=== PATIENT | female | born 1985 | race Caucasian/White ===

== ENCOUNTER 2017-03-14 08:43 | Emergency (ER) | payer MEDICAID ==
[2017-03-14 08:48] VITALS: BP 133/84; PULSE 102; RESP 18; TEMP 98.8; O2SAT 96
[2017-03-14] MEDS ORDERED: DEXAMETHASONE 4 MG TAB PO ONE (09:05)
--- NOTE | 2017-03-14 09:05 | EDPHY ---
H & P Stated Complaint: swollen tonsils for 2 days, left worse than the right HPI/ROS: CHIEF COMPLAINT: Sore throat, swollen tonsils HISTORY OF PRESENT ILLNESS: Patient complains of 2 day history of sore throat. She feels that the pain is worse on the left but it is moderate to severe in the entire throat. No cough. No runny nose. No headache or sinus congestion. No shortness of breath. No abdominal pain. No urinary complaints, although she is completing a course of Macrobid for UTI. She has no chest pain. Symptoms are worse with intake by mouth. The improves when NPO. No neck pain or stiffness. No other associated complaints or modifying factors. REVIEW OF SYSTEMS: Ten systems reviewed and are negative unless otherwise noted in the HPI PAST MEDICAL HISTORY: PE in July on Coumadin, hysterectomy due to abnormal Pap smear PAST SURGICAL HISTORY: Hysterectomy in November 2016. SOCIAL HISTORY: Occasional smoker. No alcohol. 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 No drooling. Mucous membranes moist. There is mild erythema of the posterior pharynx. There is moderate erythema of bilateral tonsils. The tonsils are symmetric and without any evidence of peritonsillar abscess. There is tonsillar exudate. Airway is widely patent with midline uvula. Neck: Normal inspection, supple, tender anterior cervical lymphadenopathy. No meningismus or rigidity. Respiratory: Lungs are clear to auscultation no wheezing, rhonchi or Cardiovascular: Regular rate and rhythm Gastrointestinal: Abdomen is nondistended Neurological: A&O, nonfocal Skin: Warm and dry, no rash. No petechiae or purpura Extremities: Nontender, no pedal edema Psychiatric: Mood and affect normal DIFFERENTIAL DIAGNOSES: Including but not limited to strep pharyngitis, viral pharyngitis, strep tonsillitis, viral tonsillitis, peritonsillar abscess, Markus's MDM: 9:05 a.m. Bilateral and symmetric tonsillitis with exudate. There is pharyngitis as well. The uvula is midline. There is no peritonsillar abscess. No abnormality of the floor of the mouth. She has no other complaints, thus I clinical suspicion for strep pharyngitis. She has elected to have a rapid strep test performed, for her information. I would like to treat her clinically regardless of the rapid strep test. She is comfortable this plan. I have ordered Decadron here. I have ordered Augmentin for treatment outpatient. She reports UTIs on antibiotics, but she is taking Coumadin due to a PE. Thus I declined to prescribe Diflucan. I provided prescription for vaginal miconazole and instructions for her to contact her primary care physician to discuss if they are comfortable with oral Diflucan should she developed a yeast infection. She is comfortable with this plan. She is discharged home stable condition. Source: Patient Exam Limitations: No limitations - Personal History LMP (Females 10-55): Hysterectomy Current Tetanus Diphtheria and Acellular Pertussis (TDAP): Yes - Medical/Surgical History Hx Asthma: No Hx Chronic Respiratory Disease: No Hx Diabetes: No Hx Cardiac Disease: No Hx Renal Disease: No Hx Cirrhosis: No Hx Alcoholism: No Hx HIV/AIDS: No Hx Splenectomy or Spleen Trauma: No Other PMH: Tonsilitis as a child. PE's. Anxiety. - Social History Smoking Status: Current some day smoker Constitutional: Initial Vital Signs Temperature (C) 98.8 F 03/14/17 08:43 Heart Rate 102 H 03/14/17 08:43 Respiratory Rate 18 03/14/17 08:43 Blood Pressure 133/84 H 03/14/17 08:43 O2 Sat (%) 96 03/14/17 08:43 O2 Delivery Mode Room Air Allergies/Adverse Reactions: azithro Allergy (Uncoded 03/14/17 08:48) Home Medications: Medication Instructions Recorded Amoxicillin/Clavulanate Pot 875 mg PO BID #20 tab 03/14/17 [Augmentin 875 MG TAB (*)] LORAZEPAM 03/14/17 Miconazole Nitrate [MICONAZOLE 3] 200 mg VG HS #3 03/14/17 Warfarin Sodium 03/14/17 Wellbutrin Sr 03/14/17 Medical Decision Making - Data Points Laboratory Results: 03/14/17 09:10 Group A Strep Screen Pending Medications Given: Discontinued Medications Dexamethasone (Decadron) 8 mg PO EDNOW ONE Stop: 03/14/17 09:06 Last Admin: 03/14/17 09:11 Dose: 8 mg Departure - Departure Disposition: Home, Routine, Self-Care Clinical Impression: Acute pharyngitis Qualifiers: Pharyngitis/tonsillitis etiology: streptococcus Qualified Code(s): J02.0 - Streptococcal pharyngitis Acute streptococcal tonsillitis Qualifiers: Streptococcal tonsillitis recurrence: non-recurrent Qualified Code(s): J03.00 - Acute streptococcal tonsillitis, unspecified Condition: Good Instructions: Pharyngitis (ED), Strep Throat (ED), Tonsillitis (ED) Additional Instructions: 1. Increase fluid intake 2. Tylenol [id number] as discussed as needed 3. antibiotics to completion 4. Follow up with primary care physician 5. ED precautions as discussed Referrals: UNKNOWN,UNKNOWN [Other] - As per Instructions Douglas Velasco MD [Medical Doctor] - As per Instructions Stand Alone Forms: Work Excuse Prescriptions: Amoxicillin/Clavulanate Pot [Augmentin 875 MG TAB (*)] 875 mg PO BID #20 tab Miconazole Nitrate [MICONAZOLE 3] 200 mg VG HS #3
== END 2017-03-14 09:15 | disposition home or self-care (01) ==
DX: J03.00 Acute streptococcal tonsillitis, unspecified (principal); F17.200 Nicotine dependence, unspecified, uncomplicated; Z79.01 Long term (current) use of anticoagulants

== ENCOUNTER 2017-04-08 20:33 | Emergency (ER) | payer MEDICAID ==
[2017-04-08 20:46] VITALS: BP 125/89; PULSE 84; RESP 18; TEMP 98.4; O2SAT 97
--- NOTE | 2017-04-08 20:48 | EDPHY ---
H & P Stated Complaint: strep 1 mos ago treated sore throat again Time Seen by Provider: 04/08/17 20:48 HPI/ROS: HPI: This is a 32-year-old female who presents with Chief Complaint: strep 1 mos ago treated sore throat again Location: Throat Quality: Sore Duration: 2 days Signs and Symptoms: No difficulty swallowing, no fever, no ear pain, no cough, + swollen glands, no neck stiffness, no headache Timing: Gradual onset Severity: [id number] Context: Patient reports that she has a sore throat with white spots on for 1- 2 days. She also complains of swollen glands. She denies any fever/cough/neck stiffness. She was seen in this ER approximately 1 month ago; rapid strep was negative; given Augmentin but only took a few days of it. She admits that she started taking the antibiotic again yesterday. Modifying Factors: Augmentin Comment: ROS: see HPI Constitutional: No fever, no chills, no weight loss Eyes: No blurred vision Respiratory: No shortness of breath, no cough Cardiovascular: No chest pain Gastrointestinal: No nausea, no vomiting, no diarrhea Genitourinary: No dysuria Extremities: No myalgias Neurologic: No weakness, no numbness Skin: No rashes Hematologic: No bruising, no bleeding MEDICAL/SURGICAL/SOCIAL HISTORY: Medical history: PE's. Anxiety. cervical ca. strep Surgical history: Hysterectomy Social history: Employed CONSTITUTIONAL: Well-appearing adult white female, awake and alert, no obvious distress HEENT: Atraumatic and normocephalic, PERRL, EOMI. Tympanic membranes clear. Oropharynx clear, tonsils 1+; uvula midline; white exudate and moist pink mucosa. Airway patent. Spotty anterior cervical lymphadenopathy. No meningismus. Cardiovascular: Normal S1/S2, regular rate, regular rhythm, without murmur rub or gallop. PULMONARY/CHEST: Symmetrical and nontender. Clear to auscultation bilaterally. Good air movement. No accessory muscle usage. ABDOMEN: Soft, nondistended, nontender, no rebound, no guarding, no peritoneal signs, no masses or organomegaly. No CVAT. EXTREMITIES: 2/2 pulses, no deformities, no clubbing, no cyanosis or edema. NEUROLOGICAL: no focal neuro deficits. GCS 15. SKIN: Warm and dry, no erythema. no rash. Good capillary refill. Source: Patient Exam Limitations: No limitations - Personal History LMP (Females 10-55): Hysterectomy Current Tetanus/Diphtheria Vaccine: Yes Current Tetanus Diphtheria and Acellular Pertussis (TDAP): Yes - Medical/Surgical History Hx Asthma: No Hx Chronic Respiratory Disease: No Hx Diabetes: No Hx Cardiac Disease: No Hx Renal Disease: No Hx Cirrhosis: No Hx Alcoholism: No Hx HIV/AIDS: No Hx Splenectomy or Spleen Trauma: No Other PMH: PE's. Anxiety. cervical ca. strep - Social History Smoking Status: Current some day smoker Constitutional: Initial Vital Signs Temperature (C) 36.9 C 04/08/17 20:41 Heart Rate 84 04/08/17 20:41 Respiratory Rate 18 04/08/17 20:41 Blood Pressure 125/89 H 04/08/17 20:41 O2 Sat (%) 97 04/08/17 20:41 O2 Delivery Mode Room Air Allergies/Adverse Reactions: erythromycin base Allergy (Verified 04/08/17 20:40) azithro Allergy (Uncoded 03/14/17 08:48) Home Medications: Medication Instructions Recorded Warfarin Sodium 03/14/17 Wellbutrin Sr 03/14/17 KLONOPIN 04/08/17 Prozac 20 MG (*) 04/08/17 Medical Decision Making ED Course/Re-evaluation: Rapid strep test ordered Given viscous lidocaine and p.o. Decadron. Modified center criteria= 2 No signs of tonsillar abscess/airway compromise Strep test is negative no indication to treat with antibiotics Differential Diagnosis: Differential diagnosis includes but is not limited to viral syndrome, strep pharyngitis, mononucleosis. - Data Points Laboratory Results: 04/08/17 04/08/17 Unknown 20:50 Group A Strep Screen NEGATIVE (NEGATIVE) Group A Strep DNA Pending Medications Given: Discontinued Medications Dexamethasone (Decadron) 10 mg PO EDNOW ONE Stop: 04/08/17 20:54 Last Admin: 04/08/17 20:59 Dose: 10 mg Lidocaine (Lidocaine 2% Viscous) 15 ml PO EDNOW ONE Stop: 04/08/17 20:54 Last Admin: 04/08/17 20:59 Dose: 15 ml Departure - Departure Disposition: Home, Routine, Self-Care Clinical Impression: Tonsillitis with exudate Condition: Good Instructions: Tonsillitis (ED) Additional Instructions: Your strep test is negative today. Please continue to perform salt water gargles, take [id number] pain medications like Tylenol and ibuprofen, and use throat numbing sprays. Drink plenty of fluids. Follow-up with ENT if symptoms continue to persist or worsen. Referrals: EVIE BENDER [Primary Care Provider] - As per Instructions Christopher Saucedo MD [Medical Doctor] - As per Instructions
[2017-04-08] MEDS ORDERED: DEXAMETHASONE 4 MG TAB PO ONE (20:53)
[2017-04-08] MEDS ORDERED: LIDOCAINE 2% VISCOUS 15 ML UDCUP PO ONE (20:53)
== END 2017-04-08 21:32 | disposition home or self-care (01) ==
DX: J03.90 Acute tonsillitis, unspecified (principal); F17.200 Nicotine dependence, unspecified, uncomplicated; Z79.01 Long term (current) use of anticoagulants; Z85.41 Personal history of malignant neoplasm of cervix uteri

== ENCOUNTER 2017-04-28 16:44 | Emergency (ER) | payer MEDICAID ==
[2017-04-28 16:49] VITALS: BP 112/87; PULSE 99; RESP 20; TEMP 99.3; O2SAT 96
--- NOTE | 2017-04-28 17:39 | EDPHY ---
H & P Stated Complaint: fever, cough x3 days Time Seen by Provider: 04/28/17 17:32 HPI/ROS: CHIEF COMPLAINT: Flu-like symptoms x 2-3 days HISTORY OF PRESENT ILLNESS: 32-year-old female history of pulmonary emboli currently on warfarin therapy complaining of 2-3 days of myalgias, fever, chills , nonproductive cough, sore throat. She did receive influenza vaccination this season. No urinary abnormality. No headache. No nuchal rigidity. No abdominal pain. No chest pain. No flank pain. PRIMARY CARE PROVIDER: Dr. Elvin Randolph REVIEW OF SYSTEMS: A ten point review of systems was performed and is negative with the exception of the items mentioned in the HPI PAST MEDICAL & SURGICAL HISTORY: Pulmonary emboli on warfarin SOCIAL HISTORY: nonsmoker PHYSICAL EXAM (Prior to examination, patient consented to physical exam, hands were washed and my usual and customary physical exam procedures followed) 1) GENERAL: Well-developed, well-nourished, alert and oriented. Appears to be in no acute distress. 2) HEAD: Normocephalic, atraumatic 3) HEENT: Pupils equal, round, reactive to light bilaterally. Sclera anicteric. Nasopharynx, oropharynx, clear, no lesions. No tonsillar enlargement or exudate. Ears bilaterally with normal tympanic membranes. 4) NECK: Full range of motion, no meningeal signs. No adenopathy 5) LUNGS: Clear auscultation bilaterally, no wheezes, no rhonchi, no retractions. 6) HEART: Regular rate and rhythm, no murmur, no heave, no gallop. 7) ABDOMEN: No guarding, no rebound, no focal tenderness, negative McBurney's, negative Bustillos's, negative Rovsing's, negative peritoneal sign, 8) MUSCULOSKELETAL: Moving all extremities, no focal areas of tenderness, no obvious trauma. No peripheral edema or discoloration. 9) BACK: No CVA tenderness. 10) SKIN: No rash, no petechiae. 11) Psychiatric: Patient is oriented X 3, there is no agitation. DIFFERENTIAL DIAGNOSIS: in no particular include but limited to meningitis, influenza, viral URI, pneumonia - Personal History LMP (Females 10-55): Hysterectomy Current Tetanus Diphtheria and Acellular Pertussis (TDAP): Yes - Medical/Surgical History Hx Asthma: No Hx Chronic Respiratory Disease: No Hx Diabetes: No Hx Cardiac Disease: No Hx Renal Disease: No Hx Cirrhosis: No Hx Alcoholism: No Hx HIV/AIDS: No Hx Splenectomy or Spleen Trauma: No Other PMH: PE's. Anxiety. cervical ca. strep - Social History Smoking Status: Current some day smoker Constitutional: Initial Vital Signs Temperature (C) 37.4 C 04/28/17 16:47 Heart Rate 99 04/28/17 16:47 Respiratory Rate 20 04/28/17 16:47 Blood Pressure 112/87 H 04/28/17 16:47 O2 Sat (%) 96 04/28/17 16:47 O2 Delivery Mode Room Air Allergies/Adverse Reactions: erythromycin base Allergy (Verified 04/08/17 20:40) Home Medications: Medication Instructions Recorded Warfarin Sodium 03/14/17 Wellbutrin Sr 03/14/17 KLONOPIN 04/08/17 Prozac 20 MG (*) 04/08/17 Percocet 5/325 (*) 04/28/17 Medical Decision Making ED Course/Re-evaluation: Care of patient under supervision of secondary supervising physician Dr Chaudhry. Doubt meningitis at this time absence of meningismus and other exam findings. 5:57 p.m.: Informed by the patient's nurse that patient had an acute unexpected family emergency that she just received a phone call about and now has to leave the emergency department. Diagnostic results pending. 6:43 p.m.:Patient is positive for influenza A, the charge nurse spoke with the patient and she will hold on antiviral therapy - Data Points Laboratory Results: 04/28/17 17:38 Nasal Influenza A PCR FLU A DETECTED (NEGATIVE) Nasal Influenza B PCR NEGATIVE FOR FLU B (NEGATIVE) Departure - Departure Disposition: Against Medical Advice Clinical Impression: Influenza A Condition: Good Referrals: ELVIN RANDOLPH [Primary Care Provider] - As per Instructions
== END 2017-04-28 18:04 | disposition left against medical advice (07) ==
DX: J10.1 Influenza due to other identified influenza virus with other respiratory manifestations (principal); F17.200 Nicotine dependence, unspecified, uncomplicated; Z79.01 Long term (current) use of anticoagulants

== ENCOUNTER 2017-10-07 14:18 | Emergency (ER) | payer MEDICAID ==
--- NOTE | 2017-10-07 14:57 | EDPHY ---
H & P Stated Complaint: Anxiety; feels shakey Time Seen by Provider: 10/07/17 14:55 HPI/ROS: HPI: This 32-year-old female who presents with Chief Complaint: Anxiety; feels shakey Location: body Quality: "feels shakey" Duration: 1-3 hours prior to arrival Signs and Symptoms: no fever, + nausea, no vomiting, no diarrhea, no urinary symptoms, no chest pain, no shortness of breath, no wheezing, no cough, no sore throat, no neck stiffness, no joint pain, no swollen glands, no ear pain, no rash, no abdominal pain, no chest pain, no shortness of breath Timing: Acute, constant Severity: Moderate to severe Context: Patient is a tobacco user, status post hysterectomy last year presents with complaints of 1-3 hours prior to arrival, sudden onset of"feeling shaky and not right." Reports that she tried Klonopin with no relief. She has a history of anxiety. Patient denies feeling anxious or having a stressful event occur prior to her symptoms starting. Reports that she was simply sitting watching TV. She denies chest pain/shortness of breath/palpitations. Patient reports that yesterday she felt fine. She takes Coumadin for history of pulmonary embolism. Modifying Factors: Klonopin, no relief Comment: ROS: see HPI Constitutional: + fever, no chills, no weight loss Eyes: No blurred vision Respiratory: No shortness of breath, no cough Cardiovascular: No chest pain, no palpitations Gastrointestinal: No nausea, no vomiting, no diarrhea, no hematemesis, no blood in stool Genitourinary: No dysuria, no blood in urine Extremities: No myalgias, no edema Neurologic: No weakness, no numbness Skin: No rashes, no petechiae Hematologic: No bruising, no bleeding MEDICAL/SURGICAL/SOCIAL HISTORY: Medical history: PE's. Anxiety. cervical cancer. strep Surgical history: Hysterectomy Social history: . Employed. Family history noncontributory. CONSTITUTIONAL: Extremely well-appearing adult white female, significant other at bedside, awake and alert, no obvious distress HEENT: Atraumatic and normocephalic, PERRL, EOMI. Nares patent; no rhinorrhea; no nasal mucosal edema. Tympanic membranes clear. Oropharynx clear, no exudate and moist pink mucosa. Airway patent. No lymphadenopathy. No meningismus. Cardiovascular: Normal S1/S2, regular rate, regular rhythm, without murmur rub or gallop. PULMONARY/CHEST: Symmetrical and nontender. Clear to auscultation bilaterally. Good air movement. No accessory muscle usage. ABDOMEN: Soft, nondistended, nontender, no rebound, no guarding, no peritoneal signs, no masses or organomegaly. No CVAT. EXTREMITIES: 2/2 pulses, strength 5/5, no deformities, no clubbing, no cyanosis or edema. NEUROLOGICAL: no focal neuro deficits. GCS 15. SKIN: Warm and dry, no erythema. no rash. Good capillary refill. Source: Patient Exam Limitations: No limitations - Personal History LMP (Females 10-55): Hysterectomy Current Tetanus Diphtheria and Acellular Pertussis (TDAP): Yes - Medical/Surgical History Hx Asthma: No Hx Chronic Respiratory Disease: No Hx Diabetes: No Hx Cardiac Disease: No Hx Renal Disease: No Hx Cirrhosis: No Hx Alcoholism: No Hx HIV/AIDS: No Hx Splenectomy or Spleen Trauma: No Other PMH: PE's. Anxiety. cervical ca. strep - Social History Smoking Status: Current every day smoker Constitutional: Initial Vital Signs Temperature (C) 36.9 C 10/07/17 14:20 Heart Rate 96 10/07/17 14:20 Respiratory Rate 18 10/07/17 14:20 Blood Pressure 136/85 H 10/07/17 14:20 O2 Sat (%) 96 10/07/17 14:20 O2 Delivery Mode Room Air Allergies/Adverse Reactions: erythromycin base Allergy (Mild, Verified 10/07/17 14:20) GI Home Medications: Medication Instructions Recorded Wellbutrin Sr 03/14/17 KLONOPIN 04/08/17 Prozac 20 MG (*) 04/08/17 Medical Decision Making - Diagnostics EKG Interpretation: 12 lead EKG: Indication: Anxiety Rhythm: Normal sinus rhythm, rate 77 beats per minute Kimberly: Normal Intervals: Normal QRS: Normal ST segments: Normal T segment: Normal INTERPRETATION: No acute ischemic changes/arrhythmia The 12 lead EKG was interpreted by myself and with attending. ED Course/Re-evaluation: EKG, labs, urinalysis ordered Vital signs reviewed upon arrival. Stable. No systemic signs. EKG shows no signs of acute ischemic changes/arrhythmia Given 1 L normal saline and IV Ativan 1 mg 1630: Labs reviewed. No signs of leukocytosis/anemia/ZABRINA/elevated LFTs/ electrolyte imbalance/thyroid disease/ACS. INR 1.95 Laboratory studies explained with patient at bedside. Urinalysis shows no signs of infection/hematuria with normal specific gravity. 1700: Reassessed patient. Reports improvement in symptoms. Advised to follow up with primary care provider if symptoms persist. May benefit from hormonal workup. Work note provided per request. All questions were answered. This patient was seen under the supervision of my secondary supervising physician. I evaluated care for this patient independently. Differential Diagnosis: Differential including but not limited to viral syndromes including influenza, urinary tract infection, anemia, anxiety, dehydration. - Data Points Laboratory Results: Laboratory Results 10/07/17 15:49 10/07/17 15:49 10/07/17 10/07/17 10/07/17 15:49 15:49 15:49 WBC 7.12 10^3/uL 10^3/uL (3.80-9.50) RBC 4.95 10^6/uL 10^6/uL (4.18-5.33) Hgb 15.3 g/dL g/dL (12.6-16.3) Hct 44.4 % % (38.0-47.0) MCV 89.7 fL fL (81.5-99.8) MCH 30.9 pg pg (27.9-34.1) MCHC 34.5 g/dL g/dL (32.4-36.7) RDW 12.8 % % (11.5-15.2) Plt Count 316 10^3/uL 10^3/uL (150-400) MPV 9.8 fL fL (8.7-11.7) Neut % (Auto) 67.2 % % (39.3-74.2) Lymph % (Auto) 22.9 % % (15.0-45.0) [place] % (Auto) 8.1 % % (4.5-13.0) Eos % (Auto) 0.6 % % (0.6-7.6) Baso % (Auto) 0.6 % % (0.3-1.7) Nucleat RBC Rel Count 0.0 % % (0.0-0.2) Absolute Neuts (auto) 4.79 10^3/uL 10^3/uL (1.70-6.50) Absolute Lymphs (auto) 1.63 10^3/uL 10^3/uL (1.00-3.00) Absolute Monos (auto) 0.58 10^3/uL 10^3/uL (0.30-0.80) Absolute Eos (auto) 0.04 10^3/uL 10^3/uL (0.03-0.40) Absolute Basos (auto) 0.04 10^3/uL 10^3/uL (0.02-0.10) Absolute Nucleated RBC 0.00 10^3/uL 10^3/uL (0-0.01) Immature Gran % 0.6 % % (0.0-1.1) Immature Gran # 0.04 10^3/uL 10^3/uL (0.00-0.10) ESR 9 MM/HR MM/HR (0-20) PT 22.3 SEC H SEC (12.0-15.0) INR 1.95 H (0.83-1.16) Sodium 142 mEq/L mEq/L (135-145) Potassium 4.2 mEq/L mEq/L (3.5-5.2) Chloride 106 mEq/L mEq/L (97-110) Carbon Dioxide 26 mEq/l mEq/l (22-31) Anion Gap 10 mEq/L mEq/L (8-16) BUN 10 mg/dL mg/dL (7-23) Creatinine 0.7 mg/dL mg/dL (0.6-1.0) Estimated GFR > 60 Glucose 86 mg/dL mg/dL (70-100) Calcium 10.1 mg/dL mg/dL (8.5-10.4) Total Bilirubin 0.5 mg/dL mg/dL (0.1-1.4) Conjugated Bilirubin 0.3 mg/dL mg/dL (0.0-0.5) Unconjugated Bilirubin 0.2 mg/dL mg/dL (0.0-1.1) AST 39 IU/L IU/L (14-46) ALT 41 IU/L IU/L (9-52) Alkaline Phosphatase 70 IU/L IU/L (38-126) Troponin I < 0.012 ng/mL ng/mL (0.000-0.034) Total Protein 7.7 g/dL g/dL (6.3-8.2) Albumin 4.6 g/dL g/dL (3.5-5.0) TSH 1.670 uIU/mL uIU/mL (0.465-4.680) Urine Color Urine Appearance Urine pH Ur Specific [place] Urine Protein Urine Ketones Urine Blood Urine Nitrate Urine Bilirubin Urine Urobilinogen Ur Leukocyte Esterase Urine Glucose 10/07/17 15:25 WBC RBC Hgb Hct MCV MCH MCHC RDW Plt Count MPV Neut % (Auto) Lymph % (Auto) [place] % (Auto) Eos % (Auto) Baso % (Auto) Nucleat RBC Rel Count Absolute Neuts (auto) Absolute Lymphs (auto) Absolute Monos (auto) Absolute Eos (auto) Absolute Basos (auto) Absolute Nucleated RBC Immature Gran % Immature Gran # ESR PT INR Sodium Potassium Chloride Carbon Dioxide Anion Gap BUN Creatinine Estimated GFR Glucose Calcium Total Bilirubin Conjugated Bilirubin Unconjugated Bilirubin AST ALT Alkaline Phosphatase Troponin I Total Protein Albumin TSH Urine Color PALE YELLOW Urine Appearance CLEAR Urine pH 7.0 (5.0-7.5) Ur Specific [place] 1.002 (1.002-1.030) Urine Protein NEGATIVE (NEGATIVE) Urine Ketones NEGATIVE (NEGATIVE) Urine Blood NEGATIVE (NEGATIVE) Urine Nitrate NEGATIVE (NEGATIVE) Urine Bilirubin NEGATIVE (NEGATIVE) Urine Urobilinogen NEGATIVE EU EU (0.2-1.0) Ur Leukocyte Esterase NEGATIVE (NEGATIVE) Urine Glucose NEGATIVE (NEGATIVE) Medications Given: Discontinued Medications Sodium Chloride (Ns) 1,000 mls @ 0 mls/hr IV ONCE ONE; Wide Open PRN Reason: Protocol Stop: 10/07/17 15:29 Last Admin: 10/07/17 16:33 Dose: 1,000 mls Lorazepam (Ativan Injection) 1 mg IVP EDNOW ONE Stop: 10/07/17 16:01 Last Admin: 10/07/17 16:33 Dose: 1 mg Departure - Departure Disposition: Home, Routine, Self-Care Clinical Impression: Feeling jittery Condition: Good Instructions: Anxiety (ED) Additional Instructions: Consume a minimum of 8-10 glasses of water or electrolyte fluid replacement drinks that include Gatorade, Powerade, Pedialyte. Eat a bland diet for the next 48 hours and then slowly advance as tolerated. Rest as much as possible until you are feeling better. Stay home from work today. If symptoms persist greater than 5-7 days; follow-up with primary care provider for further workup. Referrals: EVIE BENDER [Primary Care Provider] - 5-7 days, if not improved Stand Alone Forms: Work Excuse
[2017-10-07] MEDS ORDERED: NS 1,000 ML IV ONE (15:28)
[2017-10-07 15:57] LABS: PLATELET COUNT 316 10^3/uL (150-400)
--- NOTE | 2017-10-07 15:57 | CPEKG ---
Heart Rate: 77 RR Interval: 779 P-R Interval: 164 QRSD Interval: 86 QT Interval: 404 QTC Interval: 458 P [place]: 62 QRS [place]: 33 T Wave [place]: 37 EKG Severity - BORDERLINE ECG - EKG Impression: SINUS RHYTHM EKG Impression: PROBABLE LEFT ATRIAL ABNORMALITY Electronically Signed By: Sean Lucas 07-Oct-2017 21:10:25
[2017-10-07] MEDS ORDERED: LORazepam 2 MG/ML INJ IVP ONE (16:00)
[2017-10-07 16:06] LABS: INR 1.95 (0.83-1.16); PROTIME(PATIENT) 22.3 SEC (12.0-15.0)
[2017-10-07 17:11] VITALS: BP 108/74
== END 2017-10-07 17:11 | disposition home or self-care (01) ==
DX: R45.0 Nervousness (principal); E86.9 Volume depletion, unspecified; F17.200 Nicotine dependence, unspecified, uncomplicated; Z85.41 Personal history of malignant neoplasm of cervix uteri
CPT/HCPCS: 96374; J2060

== ENCOUNTER 2017-10-15 09:10 | Emergency (ER) | payer MEDICAID ==
[2017-10-15 09:28] VITALS: BP 148/77
--- NOTE | 2017-10-15 09:51 | EDPHY ---
H & P Stated Complaint: hemorrhoids with pussy drainage for 3 days Time Seen by Provider: 10/15/17 09:33 HPI/ROS: CHIEF COMPLAINT: Him a HISTORY OF PRESENT ILLNESS: Patient is a 32-year-old female who states that she frequently is troubled by hemorrhoids. She states that she slid down the stairs in a sleeping bag about 2 months ago and has had a flare and some bleeding since. She noticed today some yellowish greenish discharge and called her primary who told her to come to the ER. He has not had a fever. She has pain around 6 o'clock of her rectum. REVIEW OF SYSTEMS: Constitutional: denies: chills, fever, recent illness, recent injury EENTM: denies: blurred vision, double vision, nose congestion Respiratory: denies: cough, shortness of breath Cardiac: denies: chest pain, irregular heart rate, lightheadedness, palpitations Gastrointestinal/Abdominal: denies: abdominal pain, diarrhea, nausea, vomiting, blood streaked stools Genitourinary: denies: dysuria, frequency, hematuria, pain Musculoskeletal: denies: joint pain, muscle pain Skin: denies: lesions, rash, jaundice, bruising Neurological: denies: headache, numbness, paresthesia, tingling, dizziness, weakness Hematologic/Lymphatic: denies: blood clots, easy bleeding, easy bruising Immunologic/allergic: denies: HIV/AIDS, transplant EXAM: GENERAL: Well-appearing, well-nourished and in no acute distress. HEAD: Atraumatic, normocephalic. EYES: Pupils equal round and reactive to light, extraocular movements intact, sclera anicteric, conjunctiva are normal. ENT: TMs normal, nares patent, oropharynx clear without exudates. Moist mucous membranes. NECK: Normal range of motion, supple without lymphadenopathy or JVD. LUNGS: Breath sounds clear to auscultation bilaterally and equal. No wheezes rales or rhonchi. HEART: Regular rate and rhythm without murmurs, rubs or gallops. ABDOMEN: Soft, nontender, normoactive bowel sounds. No guarding, no rebound. No masses appreciated. Rectal: Patient has a small flaccid hemorrhoid at 3 o'clock. No thrombosed hemorrhoids. Rectal exam performed, no purulence expressed, BACK: No CVA tenderness, no spinal tenderness, step-offs or deformities EXTREMITIES: Normal range of motion, no pitting or edema. No clubbing or cyanosis. NEUROLOGICAL: Cranial nerves II through XII grossly intact. Normal speech, normal gait. 5/5 strength, normal movement in all extremities, normal sensation PSYCH: Normal mood, normal affect. SKIN: Warm, dry, normal turgor, no visible rashes or lesions. Source: Patient Exam Limitations: No limitations - Personal History LMP (Females 10-55): Hysterectomy Current Tetanus Diphtheria and Acellular Pertussis (TDAP): Yes Tetanus Vaccine Date: unsure - Medical/Surgical History Hx Asthma: No Hx Chronic Respiratory Disease: No Hx Diabetes: No Hx Cardiac Disease: No Hx Renal Disease: No Hx Cirrhosis: No Hx Alcoholism: No Hx HIV/AIDS: No Hx Splenectomy or Spleen Trauma: No Other PMH: PE's. Anxiety. cervical ca. strep - Family History Significant Family History: No pertinent family hx - Social History Smoking Status: Current every day smoker Alcohol Use: None Constitutional: Initial Vital Signs Temperature (C) 37.3 C 10/15/17 09:21 Heart Rate 88 10/15/17 09:21 Respiratory Rate 16 10/15/17 09:21 Blood Pressure 148/77 H 10/15/17 09:21 O2 Sat (%) 95 10/15/17 09:21 O2 Delivery Mode Room Air Allergies/Adverse Reactions: erythromycin base Allergy (Mild, Verified 10/15/17 09:20) GI Home Medications: Medication Instructions Recorded Wellbutrin Sr 03/14/17 KLONOPIN PRN 04/08/17 Prozac 20 MG (*) 04/08/17 Warfarin Sodium 10/15/17 Medical Decision Making ED Course/Re-evaluation: Patient has a rather benign rectal exam. She has a flaccid hemorrhoid. No fluctuance or firmness or sign of abscess on her rectal exam. No drainage. I suspect that may had a small abscess that ruptured today and that is why she had the purulent drainage but it is now gone undetectable. We did discuss possibly performing a CT scan to evaluate further but considering her improvement in symptoms and rather normal exam she declined this time. I Encouraged her to continue using steroid creams and suppositories and will have her follow up with surgery. We also discussed indications for returning and performing a CT scan and possibly I and D at that time. Differential Diagnosis: Partial list of the Differential diagnosis considered include but were not limited to; abscess, hemorrhoid, thrombosed [place] and although unlikely based on the history and physical exam, I also considered rectal fissure, appendicitis. I discussed these differential diagnoses and the plan with the patient as well as the usual and expected course. The patient understands that the diagnosis is provisional and that in medicine we are not always correct and that further workup is often warranted. Usual and customary warnings were given. All of the patient's questions were answered. The patient was instructed to return to the emergency department should the symptoms at all worsen or return, otherwise to followup with the physician as we discussed. Departure - Departure Disposition: Home, Routine, Self-Care Clinical Impression: Hemorrhoids Qualifiers: Hemorrhoid type: unspecified Qualified Code(s): K64.9 - Unspecified hemorrhoids Condition: Fair Instructions: Hemorrhoids (ED) Referrals: EVIE BENDER [Primary Care Provider] - As per Instructions Clifford Benavides MD [Medical Doctor] - As per Instructions
== END 2017-10-15 10:02 | disposition home or self-care (01) ==
LOC: CED 09:10
DX: K64.9 Unspecified hemorrhoids (principal); F17.200 Nicotine dependence, unspecified, uncomplicated; Z79.01 Long term (current) use of anticoagulants; Z85.41 Personal history of malignant neoplasm of cervix uteri

== ENCOUNTER 2017-10-21 15:35 | Emergency (ER) | payer MEDICAID ==
[2017-10-21 15:47] VITALS: BP 127/86
--- NOTE | 2017-10-21 16:03 | EDPHY ---
H & P Stated Complaint: c/o inc. anal pain/ bilat breast tenderness with D/C since yesterday Time Seen by Provider: 10/21/17 15:40 HPI/ROS: Chief Complaint: Rectal pain, breast discharge HPI: 32-year-old woman was seen on the for rectal pain with hemorrhoids and a possible abscess. Patient was seen by her primary care physician today later noted purulent discharge in start her on doxycycline. Patient states she is continuing to have some discomfort in that area is rising up toward her tailbone. Is having occasional greenish discharge in her underwear. She has been taking her antibiotics. She is also complaining of some bilateral nipple discharge which has been going on for the last several days. Has not noticed any redness or engorgement. No fevers or chills. No masses. She has never had a mammogram. She states she has been getting some achiness in her breasts every couple weeks which her doctor attributed to her menses. She is status post hysterectomy and a single oophorectomy for precancerous cervical lesions. Denies any fevers or chills. No nausea or vomiting. And is not worsening. ROS: 10 point Review of Systems is negative except as noted in the HPI. PMH: PE Social History: No smoking, no alcohol, no recreational drug use Family History: non-contributory Physical Exam: Performed with nurse Del Castillo as medical imaging specialist Gen: Awake, Alert, No Distress HEENT: Nose: no rhinorrhea Eyes: PERRLA, EOMI Mouth: Moist mucosa Neck: Supple, no JVD Chest: nontender, lungs clear to auscultation Breast exam: No masses, no erythema, no tenderness, no nipple discharge expressed, normal breast exam Heart: S1, S2 normal, no murmur Abd: Soft, non-tender, no guarding Back: no CVA tenderness, no midline tenderness Rectal: Mild tenderness in the 12:00 position. There is a small non thrombosed hemorrhoid. There are no masses. There is minimal tenderness. There is no discharge. Normal rectal exam with the exception of non thrombosed hemorrhoids. Ext: no edema, non-tender Skin: no rash Neuro: CN II-XII intact, Sensation grossly intact, Strength 5/5 in bilateral upper and lower extremities - Personal History LMP (Females 10-55): Hysterectomy Current Tetanus Diphtheria and Acellular Pertussis (TDAP): Yes Tetanus Vaccine Date: unsure - Medical/Surgical History Hx Asthma: No Hx Chronic Respiratory Disease: No Hx Diabetes: No Hx Cardiac Disease: No Hx Renal Disease: No Hx Cirrhosis: No Hx Alcoholism: No Hx HIV/AIDS: No Hx Splenectomy or Spleen Trauma: No Other PMH: Hyst/PE's. Anxiety. cervical ca. strep - Social History Smoking Status: Current every day smoker Constitutional: Initial Vital Signs Temperature (C) 36.6 C 10/21/17 15:45 Heart Rate 84 10/21/17 15:45 Respiratory Rate 18 10/21/17 15:45 Blood Pressure 127/86 H 10/21/17 15:45 O2 Sat (%) 97 10/21/17 15:45 O2 Delivery Mode Room Air Allergies/Adverse Reactions: erythromycin base Allergy (Mild, Verified 10/15/17 09:20) GI Home Medications: Medication Instructions Recorded Wellbutrin Sr 03/14/17 KLONOPIN PRN 04/08/17 Prozac 20 MG (*) 04/08/17 Clonidine 10/21/17 Doxycycline Inj 10/21/17 Medical Decision Making ED Course/Re-evaluation: Patient presenting with some breast discharge and some rectal pain. I do not see any evidence of infection at this time. There are no palpable masses or drainable abscess on examination. I have performed a rectal exam and there are no perirectal masses or tenderness on examination. We have discussed CT scanning which I do not believe is indicated at this time. Patient is declining scan at this time. I think this is appropriate. Will have her follow up with primary care physician in 2-3 days. In terms of her breast discharge. I do not see any signs of cellulitis or abscess. There are not larger engorged. She will need follow-up as an outpatient with possible mammography. Given that is bilateral. The other considerations if she needs a CT scan of her head to evaluate for possible prolactinoma or something of that sort. There is no indication for CT scanning or MRI at this time this can be arranged as an outpatient. Departure - Departure Disposition: Home, Routine, Self-Care Clinical Impression: Rectal pain, Breast pain Condition: Good Instructions: Nipple Discharge (ED), Rectal Pain (ED) Additional Instructions: Follow up with primary care physician in 2-3 days for further evaluation. Referrals: EVIE BENDER [Primary Care Provider] - As per Instructions
== END 2017-10-21 16:12 | disposition home or self-care (01) ==
LOC: CED 15:35
DX: K62.89 Other specified diseases of anus and rectum (principal); N64.4 Mastodynia; F17.200 Nicotine dependence, unspecified, uncomplicated; Z85.41 Personal history of malignant neoplasm of cervix uteri

== ENCOUNTER → 2017-10-30 | Outpatient (CLI) | payer MEDICAID | LOC: FIMAGING 08:52 | PROVIDERS: ATTEND Family Medicine | DX: N64.52 Nipple discharge (principal); R92.8 Other abnormal and inconclusive findings on diagnostic imaging of breast; Z80.3 Family history of malignant neoplasm of breast ==

== ENCOUNTER 2018-01-14 16:37 | Emergency (ER) | payer MEDICAID ==
[2018-01-14 16:50] VITALS: BP 137/95
--- NOTE | 2018-01-14 17:15 | EDPHY ---
H & P Time Seen by Provider: 01/14/18 16:46 HPI/ROS: This patient presents with concern of potential STD exposure. She explains that her now ex-boyfriend informed for this morning that he is having sex with another woman and is also an IV drug user-heroin and meth. She has been having unprotected sex with this person over the past 6 months. 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 She initially believed this until he admitted to his IV drug use today. 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 She requests full STD testing currently. She is immunized against hep B. ROS: Constitutional: No fevers. HEENT: No complaints pulmonary: No complaints cardiovascular: No complaints GI: She has mild crampy abdominal discomfort that she attributes to anxiety and IBS. : She reports mild dysuria. She explains that she was diagnosed with pyelonephritis with UTI symptoms and fever and some protein in her urine 2 weeks ago. She was seen by a private physician in [facility] who put her on Levaquin. She was concerned about potential tendon side effects and only took 3 days of the Levaquin. She still has persistent mild dysuria and mild flank ache in the left more than the right. 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 No vaginal discharge. Integumentary: No skin lesions. No genital lesions. Psychiatric: She admits feeling anxious and a bit down about her social situation. But she denies any prosper depression, suicidal thoughts or homicidal thoughts. 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 No IV drug use. Occasional alcohol. 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 She is mother of 4 children. Smoking Status: Light smoker Physical Exam: General Appearance: Alert, no distress. Eyes: Pupils equal and round no pallor or injection. ENT, Mouth: Mucous membranes moist. Respiratory: There are no retractions, lungs are clear to auscultation. Cardiovascular: Regular rate and rhythm. Gastrointestinal: Minimal suprapubic tenderness. Otherwise soft, nontender. Back: Mild left CVA tenderness versus lumbar paraspinous muscular tenderness. No midline tenderness. Pelvic: External genitalia appear healthy without vaginal discharge or lesions. Speculum exam: Cervix without lesions. No significant discharge. GC chlamydia swabs are obtained. Neurological: GCS 15. She maintains normal light touch sensory in bilateral lower extremities and 5/5 strength bilateral lower extremities. Skin: Warm and dry, no rashes. Musculoskeletal: Neck is supple nontender. Extremities are symmetrical, full range of motion. Psychiatric: Mood and affect normal DIFFERENTIAL DIAGNOSIS: After history and physical exam differential diagnosis was considered for STD exposure, low back strain, pyelonephritis, cystitis Constitutional: Initial Vital Signs Temperature (C) 36.8 C 01/14/18 16:43 Heart Rate 102 H 01/14/18 16:43 Respiratory Rate 16 01/14/18 16:43 Blood Pressure 137/95 H 01/14/18 16:43 O2 Sat (%) 97 01/14/18 16:43 O2 Delivery Mode Room Air Allergies/Adverse Reactions: erythromycin base Allergy (Mild, Verified 01/14/18 16:41) GI Home Medications: Medication Instructions Recorded Wellbutrin Sr 03/14/17 KLONOPIN PRN 04/08/17 Prozac 20 MG (*) 04/08/17 Flexeril 10 MG (*) 01/14/18 Warfarin Sodium 01/14/18 MDM/Departure - MDM Diagnostics: Studies: POC urine dip is normal. Discussion: Patient with prior history of hysterectomy here to rule out STDs after learning of her now ex-boyfriend with whom she is having unprotected sex being an IV drug user and having another girlfriend. She does not have any active symptoms. We have sent HSV, HIV hep C blood work to the main lab is well as genprobe for Chlamydia and GC all pending. The patient will call the [facility] lab in few days to check on results. I think the patient has left lumbar discomfort and tenderness is attributable to mild low back strain. I counseled regarding this. No evidence of cauda equina or other concerning findings. - Depart Disposition: Home, Routine, Self-Care Clinical Impression: Possible exposure to STD Low back strain Qualifiers: Encounter type: initial encounter Qualified Code(s): S39.012A - Strain of muscle, fascia and tendon of lower back, initial encounter Condition: Good Instructions: Low Back Strain (ED), How to Stop Smoking (ED) Additional Instructions: Diagnosis: 1. Possible STD exposure 2. Low back strain Plan: Ibuprofen Tylenol for low back strain, back stretches Call [facility] lab at [phone] to check on lab results in a few days. Return if you develop unbearable back pain, numbness or other concerns. Try to quit smoking. Referrals: NONE *PRIMARY CARE P,. [Primary Care Provider] - As per Instructions Demetrio Barron MD [Medical Doctor] - As per Instructions
[2018-01-14 19:42] LABS: HEPATITIS C ANTIBODY TOTAL NEGATIVE (NEGATIVE)
[2018-01-16 11:55] LABS: GC AMPLIFICATION GENPROBE NEGATIVE (NEGATIVE)
== END 2018-01-14 17:40 | disposition home or self-care (01) ==
LOC: CED 16:37
DX: Z20.2 Contact with and (suspected) exposure to infections with a predominantly sexual mode of transmission (principal); Z85.41 Personal history of malignant neoplasm of cervix uteri; Z90.710 Acquired absence of both cervix and uterus; F17.200 Nicotine dependence, unspecified, uncomplicated
CPT/HCPCS: 87798-90; G0472